=== PATIENT | female | born 1985 | race Hispanic/Latino ===

== ENCOUNTER 2019-09-05 22:03 | Emergency (ER) | payer MEDICAID ==
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
[2019-09-05] MEDS ORDERED: Sodium Chloride 0.9% 1,000 ML IV ONE (22:48)
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
--- NOTE | 2019-09-05 23:16 | CR ---
Indication: Pain Technique: Three views left Comparison: None Findings: Bones: Alignment is normal. No fractures or bone lesions. Joint spaces: Unremarkable. Soft tissues: Unremarkable. Impression: Negative. Dictated by Reba Morelos MD @ Sep 05 2019 11:14PM Signed by Dr. Reba Morelos @ Sep 05 2019 11:15PM
[2019-09-05] MEDS ORDERED: Acetaminophen 325 MG Tab PO ONE (23:24)
== END 2019-09-06 00:45 | disposition home or self-care (01) ==
LOC: MW.ED 22:03
DX: S06.9X9A Unspecified intracranial injury with loss of consciousness of unspecified duration, initial encounter (principal); E66.9 Obesity, unspecified; M25.522 Pain in left elbow; Y04.0XXA Assault by unarmed brawl or fight, initial encounter; Z68.26 Body mass index [BMI] 26.0-26.9, adult
CPT/HCPCS: 36415; 70450; 73080; 80307; 84703; 93005; 96360; 96361; 99284; A9270; J7030